=== PATIENT | female | born 1990 | race Caucasian/White ===

== ENCOUNTER 2019-07-26 08:48 | Emergency (ER) | payer SELFPAY ==
[~2019-07-26] VITALS: Ht 162.6 cm; Wt 59.0 kg
--- NOTE | 2019-07-26 08:48 | NUR ---
Patient BIBA ALS, transferred to bed 1. RN evaluating patient at bedside.
--- NOTE | 2019-07-26 08:50 | NUR ---
PT KHMER SPEAKING. PT WROTE DOWN NAME ON PIECE OF PAPER AND GIVEN TO FRONT OFFICE
[2019-07-26 09:04] VITALS: BP 111/72
[2019-07-26 09:06] VITALS: BP 111/72
--- NOTE | 2019-07-26 09:06 | NUR ---
29 Y/O F C/C CHEST PAIN 10/10 ON/OFF, SHAPR,PRESSURE, RADIATING TO BACK, AND NAUSEA X 3 DAYS. PT PRESENTS WITH NO RESPIRATORY DISTRESS, VSS STABLE. PT NKA. HX DEPRESSION. PT NOT SURE WHICH RX SHE TAKES. NO V/D. SIDE RAIL X1.
--- NOTE | 2019-07-26 09:42 | NUR ---
PT RESTING IN BED, SIDE RAIL X1
--- NOTE | 2019-07-26 10:15 | NUR ---
PT PULLED OUT IV
--- NOTE | 2019-07-26 10:17 | NUR ---
CHARGE NURSE, , NURSING STAFF OF PT "CHANGING NAMES" X 3 TIMES. PT DENIES HAVING ID WITH HER. PT A/OX4.
--- NOTE | 2019-07-26 10:22 | NUR ---
INFORMED DR MCKAY OF PTS CONFUSION REGARDING NAME CHANGE. PT NOW SPEAKING IN CLEAR AND FULL YI.
--- NOTE | 2019-07-26 10:44 | NUR ---
PT REFUSED XRAY ERMD AWARE
--- NOTE | 2019-07-26 10:44 | NUR ---
PT COOPERATIVE WITH LAB ; OBTRAINED BLOOD SAMPLES AND URINE
--- NOTE | 2019-07-26 10:57 | NUR ---
PT ELOPED; CHARGE NURSE, AWARE PT AMBULATED
--- NOTE | 2019-07-26 10:57 | NUR ---
SEEN PT AMBULATING OUT OF THE ER WITH STEADY GAIT
[2019-07-26 10:58] LABS: BASOPHILS % (AUTO) 0.2 % (0.0-2.0); EOSINOPHILS % (AUTO) 0.5 % (0.0-4.0); HEMATOCRIT 35.7 % (36-48); HEMOGLOBIN 12.4 g/dL (12.0-16.0); LYMPHOCYTES # (AUTO) 1.5 K/uL (2.5-16.5); LYMPHOCYTES % (AUTO) 20.4 % (20.5-51.1); MEAN CORPUSCULAR HEMOGLOBIN 31 pg (27-31); MEAN CORPUSCULAR HGB CONC 35 g/dL (33-37); MEAN CORPUSCULAR VOLUME 90.3 fL (80-94); MONOCYTES # (AUTO) 0.3 K/uL (0.8-1.0); MONOCYTES % (AUTO) 4.6 % (1.7-9.3); NEUTROPHILS # (AUTO) 5.5 K/uL (1.8-7.7); NEUTROPHILS % (AUTO) 74.3 % (42.2-75.2); PLATELET COUNT (AUTO) 248 K/uL (140-450); RED BLOOD CELL COUNT(AUTO) 3.95 MIL/uL (4.20-5.40); RED CELL DISTRIBUTION WIDTH 12.2 % (11.6-13.7); WHITE BLOOD COUNT (AUTO) 7.4 K/uL (4.8-10.8)
[2019-07-26 10:59] LABS: APPEARANCE,URINE CLEAR (CLEAR); BILIRUBIN,URINE NEGATIVE (NEGATIVE); BLOOD, URINE NEGATIVE (NEGATIVE); COLOR,URINE YELLOW (YELLOW); LEUKOCYTE ESTERASE ,URINE TRACE (NEGATIVE); NITRITE, URINE NEGATIVE (NEGATIVE); PH,URINE 5.5 (5.0-9.0); UGLUCOSE NEGATIVE (NEGATIVE)
[2019-07-26 11:09] LABS: BARBITURATE, URINE NEGATIVE ng/ml (NEG <=200); BENZODIAZEPINE, URINE NEGATIVE ng/mL (NEG <=200); CANNABINOID, URINE NEGATIVE ng/mL (NEG <=50); COCAINE, URINE NEGATIVE ng/mL (NEG <=300); OPIATE, URINE NEGATIVE ng/mL (NEG <=2000); PHENCYCLIDINE SCREEN,URINE NEGATIVE ng/mL (NEG <=25)
[2019-07-26 11:10] LABS: RBC,URINE 0 /HPF (0-5)
[2019-07-26 11:13] LABS: ALBUMIN 3.9 g/dL (3.4-5.0); ANION GAP 8.7 (8-16); ASPARTATE AMINOTRANSFERASE 19 U/L (15-37); CARBON DIOXIDE 30.6 mmol/L (21-32); CHLORIDE 105 mmol/L (98-107); CREATININE 0.5 mg/dL (0.6-1.3); GFR ARICAN-AMERICAN 188 mL/min (>90); GLUCOSE 96 mg/dL (74-106); POTASSIUM 3.3 mmol/L (3.5-5.1); SALICYLATE 2.8 mg/dL (2.8-20.0); SODIUM SERUM 141 mmol/L (136-145); TOTAL BILIRUBIN 0.3 mg/dL (0.0-1.0); UREA NITROGEN, BLOOD 4 mg/dL (7-18); WBC,URINE 0-5 /HPF (0-5)
== END 2019-07-26 10:57 | disposition left against medical advice (07) ==
LOC: MED 08:48
DX: R07.89 Other chest pain (principal); R41.0 Disorientation, unspecified
CPT/HCPCS: 36415; 80053; 80305; 81001; 84484; 85025; 93005; 99285; G0480; G0482; 99284